=== PATIENT | male | born 1995 | race African-American/Black ===

== ENCOUNTER 2016-04-02 18:32 | Inpatient (IN) | payer BC ==
[~2016-04-02] VITALS: Ht 185.4 cm; Wt 130.2 kg
[2016-04-02] MEDS ORDERED: HALOPERIDOL LACTATE 5 MG/ML AMP IM ONE (18:45)
[2016-04-02] MEDS ORDERED: diphenhydrAMINE HCL 50 MG/ML VIAL IM ONE (18:45)
[2016-04-02] MEDS ORDERED: LORazepam 2 MG/ML VIAL IM ONE (18:45)
--- NOTE | 2016-04-02 18:45 | PD ---
Data Data Orders Diphenhydramine Inj (Benadryl Inj) (04/02/16 18:45) Haloperidol Inj (Haldol Inj) (04/02/16 18:45) Lorazepam Inj (Ativan Inj) (04/02/16 18:45) [facility] Supervised Visit with COLTON: Yes Narrative Course I, Dr. Mayorga, have reviewed the advance practice practioner's documentation and am in agreement, met with the patient face to face, made the diagnosis, and the medical decision making was done by me. *My assessment and Findings: 20-year-old male brought here as a Paulson Paulson act for explosive and violent behavior. Patient is agitated, aggressive with staff and explosive with violent language. He is not able to participate with history or physical examination. Patient has never been here to [facility] before, unknown whether he has underlying psychiatric history or not. Neurologic examination is grossly nonfocal and patient is able to ambulate without any difficulty. Due to his aggressive behavior the remainder his physical exam is limited at this time. Differential includes psychosis, schizophrenia, drug-induced psychosis, oppositional defiant disorder, other. Patient was expedited to our locked psychiatric pod where he was both physically and chemically restrained. Given Benadryl, Haldol, Ativan. Laboratory workup will be obtained. Patient will be cleared for psychiatry. Flora Mayorga MD Apr 02, 2016 18:45
--- NOTE | 2016-04-02 19:00 | PD ---
HPI Chief Complaint: Psychiatric Symptoms Time Seen by Provider: 18:58 Travel History International Travel<30 days: No Contact w/Intl Traveler<30days: No History of Present Illness HPI Patient is a 20-year-old male brought into the emergency Department under Paulson act. Patient denies any physical complaints at this time. He does admit to visual and auditory hallucinations. Patient reports that he is schizophrenic. PFSH Past Medical History Schizophrenia: Yes Social History Alcohol Use: No Tobacco Use: No Substance Use: No Allergies-Medications (Allergen,Severity, Reaction): Coded Allergies: UNOBTAINABLE (Unverified , 04/02/16) Reported Meds & Prescriptions Reported Meds & Active Scripts Active Reported Buspirone (Buspirone HCl) 10 Mg Tab 10 Mg PO TID Zyprexa (Olanzapine) 15 Mg Tab 15 Mg PO HS Wellbutrin Xl 24 HR (Bupropion HCl) 150 Mg Tab 150 Mg PO DAILY Review of Systems ROS Limitations: Psychotic Except as stated in HPI: all other systems reviewed are Neg Psychiatric: Positive: Disorder of Thought, Mood Disorder Physical Exam Narrative GENERAL: These, well-developed, well-nourished, alert male. Resting comfortably in no acute distress. SKIN: Warm and dry. No rash or obvious lesions noted HEAD: Atraumatic. Normocephalic. EYES: Pupils equal and round. No scleral icterus. No injection or drainage. ENT: No nasal bleeding or discharge. Mucous membranes pink and moist. NECK: Trachea midline. No JVD. CARDIOVASCULAR: Regular rate and rhythm. No murmur appreciated. RESPIRATORY: No accessory muscle use. Clear to auscultation. Breath sounds equal bilaterally. GASTROINTESTINAL: Abdomen soft, non-tender, nondistended. Hepatic and splenic margins not palpable. MUSCULOSKELETAL: No obvious deformities. No clubbing. No cyanosis. No edema. NEUROLOGICAL: Awake and alert. No obvious cranial nerve deficits. Motor grossly within normal limits. Normal speech. Data Data Last Documented VS Vital Signs Date Time Temp Pulse Resp B/P Pulse Ox O2 Delivery O2 Flow Rate FiO2 04/02/16 19:24 98.6 108 19 129/61 97 Room Air Orders Diphenhydramine Inj (Benadryl Inj) (04/02/16 18:45) Haloperidol Inj (Haldol Inj) (04/02/16 18:45) Lorazepam Inj (Ativan Inj) (04/02/16 18:45) Complete Blood Count With Diff (04/02/16 18:43) Comprehensive Metabolic Panel (04/02/16 18:43) Drug Screen, Random Urine (04/02/16 18:43) Psych Screen (04/02/16 18:43) Restraints Violent (04/02/16 18:43) Labs Laboratory Tests Test 04/02/16 04/02/16 18:53 19:20 White Blood Count 6.6 TH/MM3 Red Blood Count 5.01 MIL/MM3 Hemoglobin 13.7 GM/DL Hematocrit 41.0 % Mean Corpuscular Volume 81.9 FL Mean Corpuscular Hemoglobin 27.4 PG Mean Corpuscular Hemoglobin 33.5 % Concent Red Cell Distribution Width 14.6 % Platelet Count 244 TH/MM3 Mean Platelet Volume 9.8 FL Neutrophils (%) (Auto) 73.1 % Lymphocytes (%) (Auto) 17.5 % Monocytes (%) (Auto) 7.7 % Eosinophils (%) (Auto) 0.9 % Basophils (%) (Auto) 0.8 % Neutrophils # (Auto) 4.8 TH/MM3 Lymphocytes # (Auto) 1.1 TH/MM3 Monocytes # (Auto) 0.5 TH/MM3 Eosinophils # (Auto) 0.1 TH/MM3 Basophils # (Auto) 0.0 TH/MM3 CBC Comment DIFF FINAL Differential Comment Sodium Level 137 MEQ/L Potassium Level 3.9 MEQ/L Chloride Level 102 MEQ/L Carbon Dioxide Level 27.5 MEQ/L Anion Gap 8 MEQ/L Blood Urea Nitrogen 12 MG/DL Creatinine 0.96 MG/DL Estimat Glomerular Filtration 99 ML/MIN Rate Random Glucose 115 MG/DL Calcium Level 8.6 MG/DL Total Bilirubin 0.3 MG/DL Aspartate Amino Transf 9 U/L (AST/SGOT) Alanine Aminotransferase 19 U/L (ALT/SGPT) Alkaline Phosphatase 108 U/L Total Protein 8.1 GM/DL Albumin 4.3 GM/DL Urine Opiates Screen NEG Urine Barbiturates Screen NEG Urine Amphetamines Screen NEG Urine Benzodiazepines Screen NEG Urine Cocaine Screen NEG Urine Cannabinoids Screen NEG MDM Medical Decision Making Medical Screen Exam Complete: Yes Emergency Medical Condition: Yes Interpretation(s) Vital Signs Date Time Temp Pulse Resp B/P Pulse Ox O2 Delivery O2 Flow Rate FiO2 04/02/16 19:24 98.6 108 19 129/61 97 Room Air Laboratory Tests Test 04/02/16 04/02/16 18:53 19:20 White Blood Count 6.6 TH/MM3 Red Blood Count 5.01 MIL/MM3 Hemoglobin 13.7 GM/DL Hematocrit 41.0 % Mean Corpuscular Volume 81.9 FL Mean Corpuscular Hemoglobin 27.4 PG Mean Corpuscular Hemoglobin 33.5 % Concent Red Cell Distribution Width 14.6 % Platelet Count 244 TH/MM3 Mean Platelet Volume 9.8 FL Neutrophils (%) (Auto) 73.1 % Lymphocytes (%) (Auto) 17.5 % Monocytes (%) (Auto) 7.7 % Eosinophils (%) (Auto) 0.9 % Basophils (%) (Auto) 0.8 % Neutrophils # (Auto) 4.8 TH/MM3 Lymphocytes # (Auto) 1.1 TH/MM3 Monocytes # (Auto) 0.5 TH/MM3 Eosinophils # (Auto) 0.1 TH/MM3 Basophils # (Auto) 0.0 TH/MM3 CBC Comment DIFF FINAL Differential Comment Sodium Level 137 MEQ/L Potassium Level 3.9 MEQ/L Chloride Level 102 MEQ/L Carbon Dioxide Level 27.5 MEQ/L Anion Gap 8 MEQ/L Blood Urea Nitrogen 12 MG/DL Creatinine 0.96 MG/DL Estimat Glomerular Filtration 99 ML/MIN Rate Random Glucose 115 MG/DL Calcium Level 8.6 MG/DL Total Bilirubin 0.3 MG/DL Aspartate Amino Transf 9 U/L (AST/SGOT) Alanine Aminotransferase 19 U/L (ALT/SGPT) Alkaline Phosphatase 108 U/L Total Protein 8.1 GM/DL Albumin 4.3 GM/DL Urine Opiates Screen NEG Urine Barbiturates Screen NEG Urine Amphetamines Screen NEG Urine Benzodiazepines Screen NEG Urine Cocaine Screen NEG Urine Cannabinoids Screen NEG Differential Diagnosis Mood disorder versus substance abuse versus schizophrenia versus psychosis versus delirium versus other Narrative Course Patient is a 20-year-old male who was brought into emergency Department under Paulson act for psychiatric evaluation. Exam was limited due to patient not cooperating with interview. Patient's vital signs are stable, he was mildly tachycardic with a rate of 108 on arrival however he was also agitated at that time. Patient denies any physical complaints at this time, he admits to hearing auditory hallucinations and seeing visual hallucinations. He reports a history of schizophrenia. CBC, chemistry, tox screen is negative. Patient is medically clear for psychiatric evaluation at this time. Diagnosis Primary Impression: Medical clearance for psychiatric admission Condition: Stable Carrie South Apr 02, 2016 19:00
[2016-04-02 19:24] VITALS: BP 129/61; PULSE 108; RESP 19; TEMP 98.6; O2SAT 97
[2016-04-02 19:38] LABS: AUTOMATED NEUTROPHIL # 4.8 TH/MM3 (1.8-7.7); BASOPHIL % 0.8 % (0.0-2.0); EOSINOPHIL # 0.1 TH/MM3 (0-0.4); EOSINOPHIL % 0.9 % (0.0-4.0); HEMO FLAGS DIFF FINAL; LYMPH % 17.5 % (9.0-44.0); LYMPHOCYTE # 1.1 TH/MM3 (1.0-4.8); MEAN CELL VOLUME 81.9 FL (80.0-100.0); MEAN CORPUSCULAR HEMOGLOBIN 27.4 PG (27.0-34.0); MEAN CORPUSCULAR HGB CONC 33.5 % (32.0-36.0); MONO % 7.7 % (0.0-8.0); NEUT % 73.1 % (16.0-70.0); PLATELET COUNT 244 TH/MM3 (150-450); RED BLOOD COUNT 5.01 MIL/MM3 (4.50-5.90); RED CELL DISTRIBUTION WIDTH 14.6 % (11.6-17.2); WHITE BLOOD COUNT 6.6 TH/MM3 (4.0-11.0)
[2016-04-02 19:44] LABS: AMPHETAMINE, URINE NEG (NEG); BARBITURATES, URINE NEG (NEG); COCAINE, URINE NEG (NEG)
[2016-04-02] MEDS ORDERED: BUSP10TA PO ×2 (19:49)
[2016-04-02] MEDS ORDERED: BUPR150XL PO ×2 (19:49)
[2016-04-02] MEDS ORDERED: ZYPR15TA PO ×2 (19:49)
[2016-04-02 20:12] LABS: ANION GAP 8 MEQ/L (5-15); AST (GOT) 9 U/L (15-37); BICARBONATE 27.5 MEQ/L (21.0-32.0); BLOOD UREA NITROGEN 12 MG/DL (7-18); CHLORIDE 102 MEQ/L (98-107); GLOMERULAR FILTRATION RATE 99 ML/MIN (>89); POTASSIUM 3.9 MEQ/L (3.5-5.1); SODIUM (NA) 137 MEQ/L (136-145)
[2016-04-02 20:15] LABS: ALKALINE PHOSPHATASE 108 U/L (45-117); ALT (GPT) 19 U/L (12-78); TOTAL BILIRUBIN ADULT 0.3 MG/DL (0.2-1.0)
[2016-04-02] MEDS ORDERED: MAGNESIUM HYDROXIDE SUSP 30 ML CUP PO PRN (21:15)
[2016-04-02] MEDS ORDERED: ALUMINUM/MAGNESIUM/SIMETH 30 ML CUP PO PRN (21:15)
[2016-04-02] MEDS ORDERED: ACETAMINOPHEN 325 MG TAB PO PRN (21:15)
[2016-04-02 22:10] VITALS: BP 138/84; PULSE 113; RESP 18; TEMP 97.4; O2SAT 98
[2016-04-03 06:00] VITALS: BP 100/66; PULSE 100; RESP 18; TEMP 97.7; O2SAT 99
[2016-04-03] MEDS ORDERED: ACETAMINOPHEN 325 MG TAB PO PRN (07:30)
[2016-04-03] MEDS ORDERED: LORazepam 2 MG/ML VIAL IM PRN (07:30)
[2016-04-03] MEDS ORDERED: LORazepam 1 MG TAB PO PRN (07:30)
[2016-04-03] MEDS ORDERED: diphenhydrAMINE HCL 50 MG CAP PO PRN (07:30)
--- NOTE | 2016-04-03 07:55 | HHI.HP ---
Provisional Diagnosis Admission Date Apr 02, 2016 at 21:09 [place] I. 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 Express and informed consent means consent voluntarily given in writing, by a competent person, after sufficient explanation and disclosure of the subject matter involved to enable the person to make a knowing and willful decision without any element of force, fraud, deceit, duress, or other form of constraint or coercion. This person is 18 years of age or older, is not now known to be incompetent to consent to treatment with a guardian advocate, and does not have a health care surrogate or proxy currently making medical treatment decisions. I have found this person to be one of the following: [] Competent to provide express and informed consent, as defined above, for voluntary admission to this facility and is competent to provide express and informed consent for treatment. He/she has the consistent capacity to make well reasoned, willful, and knowing decisions concerning his or her medical or mental health treatment. The person fully and consistently understands the purpose of the admission for examination/placement and is fully capable of personally exercising all rights assured [place] Incompetent to provide express and informed consent to voluntary admission, and this is incompetent to provide express and informed consent to treatment. The person must be transferred to involuntary status and a petition for a guardian advocate filed with the Circuit Court. [] Refusing to provide express and informed consent to voluntary admission but is competent to provide express and informed consent for treatment. The person must be discharged or transferred to involuntary status. Form shall be completed within 24 hours of a person's arrival at the receiving facility and filed in the clinical record of each person: 1. Admitted on a voluntary basis 2. Permitted to provide express and informed consent to his/her own treatment 3. Allowed to transfer from involuntary to voluntary status 4. Prior to permitting a person to consent to his or her own treatment after having been previously found incompetent to consent to treatment. History of Present Illness Capacity: Lacks Capacity HPI Patient is a 20-year-old Afro-Bulgarian male comes in under Paulson act by the [facility]'s office dated 04/02/16 0530 p.m. stating Wagner was screaming at neighbors and threatened to kill his neighbor across the street and his neighbor next door. Wagner was aggressive towards [place] upon arrival deposition [place] felt that without care or treatment Wagner is likely to suffer from eclectic refused to care for himself and such neglected or refusal pulses are revealed and present throughout a substantial harm to his well- being. There is substantial likelihood that without care treatment Wagner will cause serious bodily harm to himself or others in the near future as evidenced by recent behavior. Patient seen screened in ED urine toxicology negative. Patient was aggressive and paranoid in the emergency department necessitating he be given Haldol and Ativan and Benadryl IM. Patient seen on 2700 unit with floor staff. Patient is a markedly malodorous Afro-Bulgarian male calm muscular disheveled in appearance, quite vigilant and angry though he is oriented to place time and situation. He denies having mental illness denies need for medication is vague about any prior psychiatric history though he alludes to would indirectly. He states he lives with his father but is getting set to move about on his own. Patient denies suicidality homicidality, denies any prior sexual or physical abuse, says he did finish high school. He vaguely acknowledges prior psychiatric contact At the present time patient does meet criteria for involuntary psychiatric hospitalization on the Paulson act I'll do first opinion requests a second opinion also feel patient does not have capacity at this time take appropriate decisions concerning his care thus I will request a health care surrogate and guardian advocate. Medication reconciliation shows he may have been taking Wellbutrin BuSpar and Zyprexa in the past will offer that initially and assess compliance and behavior Review of Systems ROS Limitations: Clinical Condition, Psychotic Constitutional: DENIES: Diaphoretic episodes, Fatigue, Fever, Weight gain, Weight loss, Chills, Dizziness, Change in appetite, Night Sweats Endocrine: DENIES: Heat/cold intolerance, Polydipsia, Polyuria, Polyphagia Eyes: DENIES: Blurred vision, Diplopia, Eye inflammation, Eye pain, Vision loss , Photosensitivity, Double Vision Ears, nose, mouth, throat: DENIES: Tinnitus, Hearing loss, Vertigo, Nasal discharge, Oral lesions, Throat pain, Hoarseness, Ear Pain, Running Nose, Epistaxis, Sinus Pain, Toothache, Odynophagia Respiratory: DENIES: Apneas, Cough, Snoring, Wheezing, Hemoptysis, Sputum production, Shortness of breath Cardiovascular: DENIES: Chest pain, Palpitations, Syncope, Dyspnea on Exertion , PND, Lower Extremity Edema, Orthopnea, Claudication Gastrointestinal: DENIES: Abdominal pain, Black stools, Bloody stools, Constipation, Diarrhea, Nausea, Vomiting, Difficulty Swallowing, Anorexia Genitourinary: DENIES: Sexual dysfunction, Urinary frequency, Urinary incontinence, Urgency, Hematuria, Dysuria, Nocturia, Penile Discharge, Testicular Pain, Testicular Swelling Musculoskeletal: DENIES: Joint pain, Muscle aches, Stiffness, Joint Swelling, Back pain, Neck pain Integumentary: DENIES: Abnormal pigmentation, Nail changes, Pruritus, Rash Hematologic/lymphatic: DENIES: Bruising, Lymphadenopathy Immunologic/allergic: DENIES: Eczema, Urticaria Neurologic: COMPLAINS OF: Seizures (self-reported by history), DENIES: Abnormal gait, Headache, Localized weakness, Paresthesias, Speech Problems, Tremor, Poor Balance Psychiatric: COMPLAINS OF: Confusion, Agitation, Delusions Past Psych History Psychological trauma history Denies physical or sexual abuse Violence risk - others (6 mos) Patient psychotic very threatening towards neighbors Violence risk - self (6 mos) Denies Substance Abuse History Drugs/Alcohol past 12 months Denies Past Family Social History Coded Allergies: UNOBTAINABLE (Unverified , 04/02/16) Past Medical History Patient medically cleared ED vague self-reported history of seizure disorder Reported Medications Buspirone 10 Mg Tab10 Mg PO TID Ref 0 04/02/16 Olanzapine (Zyprexa)15 Mg Tab15 Mg PO HS #30 TAB Ref 0 04/02/16 Bupropion HCl ER 24 HR (Wellbutrin Xl 24 HR)150 Mg Sgr470 Mg PO DAILY Ref 0 04/02/16 Current Medications Medications (Trade) Dose Ordered Sig/Olivier Route Start Time Stop Time Status Last Admin (Tylenol) 650 mg Q4H PRN PO 04/02/16 21:15 (Milk Of Magnesia Liq) 30 ml DAILY PRN PO 04/02/16 21:15 (Mag-Al Plus Susp Liq) 30 ml Q6H PRN PO 04/02/16 21:15 Family History Patient states lives with his father is single never been no children Social History Unknown at this time Patient's Strengths (min. 2) Patient verbal overall fairly physically healthy Physical Exam Patient seen screened in ED exam reviewed and agreed with vital signs blood pressure 100/66 pulse 100 respirations 18 Vital Signs Vital Signs Date Time Temp Pulse Resp B/P Pulse Ox O2 Delivery O2 Flow Rate FiO2 04/03/16 06:00 97.7 100 18 100/66 99 04/02/16 19:24 Room Air Mental Status Examination Alert frail will oriented markedly malodorous disheveled stockily built Afro- [place]ian male, guarded vigilant with poor eye contact Appearance Scruffy and malodorous and disheveled Speech: Rapid, Hesitant, Circumstantial, Tangential Orientation: x3 Memory: Unremarkable Thought Process: Linear, Loose Association Thought Content: Paranoid Hallucination Type: None (denies that appears to be responding to internal stimuli) Attention and Concentration: Other (fair) Suicidal Ideation: No Previous Suicide Attempts: No Homicidal Ideation: Yes (made threatening statements towards neighbors) Previous Homicide Attempts: No (unknown at this time) Insight: Poor Judgement: Poor Affect: Other (slight decrease range and intensity) Mood: Irritable, Other (restricted at this time) Motor Activity: Normal gait Assessment & Plan Problem List: (1) Personal history of seizure disorder ICD Code: Z86.69 (2) Paranoid type schizophrenia, chronic state ICD Code: F20.0 Assessment & Plan Estimated LOS: 5-7 days patient psychotic and delusional, history noncompliance medication. And aggressive behavior. At this time patient meets criteria for involuntary psychiatric hospitalization under the Paulson act. I will do first opinion requests second opinion. I also feel he does not have capacity thus I' ll ask for healthcare surrogate and guardian advocate. Patient states she has a history of seizure disorder will hospitalist consult for that. We will initially start with continuing medications per med reconciliation Discharge Planning To be determined Request HC Surrog/Guard Advoc?: Yes Jose Tyler MD Apr 03, 2016 07:55
[2016-04-03] MEDS ORDERED: ALUMINUM/MAGNESIUM/SIMETH 30 ML CUP PO PRN (08:00)
[2016-04-03] MEDS ORDERED: MAGNESIUM HYDROXIDE SUSP 30 ML CUP PO PRN (09:00)
[2016-04-03] MEDS: buPROPion HCL 150 MG EXTENDED RELEASE TAB PO SCH ×2 (09:00→11:59)
[2016-04-03] MEDS: busPIRone HCL 10 MG TAB PO SCH ×4 (09:00→17:44)
[2016-04-03 09:25] LABS: ANION GAP 8 MEQ/L (5-15); BLOOD UREA NITROGEN 11 MG/DL (7-18); CHLORIDE 102 MEQ/L (98-107); GLOMERULAR FILTRATION RATE 129 ML/MIN (>89); HDL CHOLESTEROL 45.5 MG/DL (40.0-60.0); LDL CHOLESTEROL 76 MG/DL (0-99); POTASSIUM 4.1 MEQ/L (3.5-5.1); SODIUM (NA) 139 MEQ/L (136-145)
[2016-04-03] MEDS ORDERED: LORazepam 2 MG/ML VIAL ONE (12:17)
[2016-04-03] MEDS ORDERED: diphenhydrAMINE HCL 50 MG/ML VIAL ONE (12:17)
[2016-04-03] MEDS ORDERED: HALOPERIDOL LACTATE 5 MG/ML AMP ONE ×2 (12:18)
[2016-04-03 12:44] LABS: HEMOGLOBIN A1a 0.8 %; HEMOGLOBIN A1b 1.6 %; HEMOGLOBIN Ao 85.9 %; HEMOGLOBIN LA1C 1.9 %; HEMOGLOBIN P3 3.5 %
--- NOTE | 2016-04-03 13:40 | HHI.PYPN ---
Subjective Remarks This note is for documenting face to face for seclusion order. Pt became agitated and aggressive and threatening to staff, stating that he will kill staff. Pt was given IM medications for agitation and placed in seclusion room. He was seen face to face within 1 hour of order as required (125pm). Pt denies pain or discomfort. He is lying on bed. He is still easily agitated and is upset that MD is "a girl". I explained to pt reason for order and rationale for use of IM medication as well as criteria for removal of seclusion order. Objective Alert: Yes [place]: Person, Place, Situation Mood: Agitated, Angry Affect: Labile Memory Intact: Comment (not formally tested, but no obvious gross deficits) Hallucinations: Other (does not appear to be responding to internal stimuli) Delusions: Yes Delusion Type: Paranoid Suicidal: Ideation (non expressed) Homicidal: Ideation (expressed threats towards staff) Insight/Judgement poor Labs Test 04/02/16 04/02/16 04/03/16 18:53 19:20 08:25 White Blood Count 6.6 TH/MM3 Red Blood Count 5.01 MIL/MM3 Hemoglobin 13.7 GM/DL Hematocrit 41.0 % Mean Corpuscular Volume 81.9 FL Mean Corpuscular Hemoglobin 27.4 PG Mean Corpuscular Hemoglobin 33.5 % Concent Red Cell Distribution Width 14.6 % Platelet Count 244 TH/MM3 Mean Platelet Volume 9.8 FL Neutrophils (%) (Auto) 73.1 % Lymphocytes (%) (Auto) 17.5 % Monocytes (%) (Auto) 7.7 % Eosinophils (%) (Auto) 0.9 % Basophils (%) (Auto) 0.8 % Neutrophils # (Auto) 4.8 TH/MM3 Lymphocytes # (Auto) 1.1 TH/MM3 Monocytes # (Auto) 0.5 TH/MM3 Eosinophils # (Auto) 0.1 TH/MM3 Basophils # (Auto) 0.0 TH/MM3 CBC Comment DIFF FINAL Differential Comment Sodium Level 137 MEQ/L 139 MEQ/L Potassium Level 3.9 MEQ/L 4.1 MEQ/L Chloride Level 102 MEQ/L 102 MEQ/L Carbon Dioxide Level 27.5 MEQ/L 29.0 MEQ/L Anion Gap 8 MEQ/L 8 MEQ/L Blood Urea Nitrogen 12 MG/DL 11 MG/DL Creatinine 0.96 MG/DL 0.90 MG/DL Estimat Glomerular Filtration 99 ML/MIN 129 ML/MIN Rate Random Glucose 115 MG/DL 152 MG/DL Calcium Level 8.6 MG/DL 8.7 MG/DL Total Bilirubin 0.3 MG/DL Aspartate Amino Transf 9 U/L (AST/SGOT) Alanine Aminotransferase 19 U/L (ALT/SGPT) Alkaline Phosphatase 108 U/L Total Protein 8.1 GM/DL Albumin 4.3 GM/DL Urine Opiates Screen NEG Urine Barbiturates Screen NEG Urine Amphetamines Screen NEG Urine Benzodiazepines Screen NEG Urine Cocaine Screen NEG Urine Cannabinoids Screen NEG Hemoglobin A1c 5.6 % Triglycerides Level 44 MG/DL Cholesterol Level 130 MG/DL LDL Cholesterol 76 MG/DL HDL Cholesterol 45.5 MG/DL Cholesterol/HDL Ratio 2.85 RATIO Vitals/IOs Vital Signs Date Time Temp Pulse Resp B/P Pulse Ox O2 Delivery O2 Flow Rate FiO2 04/03/16 06:00 97.7 100 18 100/66 99 04/02/16 19:24 Room Air Assessment & Plan Problem List: (1) Personal history of seizure disorder ICD Code: Z86.69 (2) Paranoid type schizophrenia, chronic state ICD Code: F20.0 Assessment & Plan Pt to be removed from seclusion once calm and no longer presenting danger to milieu. Estimated LOS: days Justification for Cont. Inpt. aggression Request HC Surrog/Guard Advoc?: Yes Kitty Barrientos MD Apr 03, 2016 13:39
[2016-04-04 05:51] VITALS: BP 114/69; PULSE 109; RESP 18; TEMP 98.2; O2SAT 100
[2016-04-04] MEDS: busPIRone HCL 10 MG TAB PO SCH ×3 (09:04→18:26)
[2016-04-04] MEDS: buPROPion HCL 150 MG EXTENDED RELEASE TAB PO SCH (09:04)
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
[2016-04-04] MEDS ORDERED: BENZTROPINE MESYLATE 1 MG TAB PO PRN (12:15)
[2016-04-04] MEDS ORDERED: BENZTROPINE MESYLATE 2 MG/2 ML VIAL IM PRN (12:15)
[2016-04-04] MEDS ORDERED: HALOPERIDOL LACTATE 5 MG/ML AMP IM PRN (12:15)
[2016-04-04 15:29] LABS: AMPHETAMINE, URINE NEG (NEG); BARBITURATES, URINE NEG (NEG); COCAINE, URINE NEG (NEG)
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
[2016-04-04 20:32] VITALS: BP 117/76; PULSE 106; RESP 18; TEMP 98.3; O2SAT 99
[2016-04-04] MEDS: HALOPERIDOL 5 MG TAB PO SCH (20:34)
[2016-04-05 06:32] VITALS: BP 113/72; PULSE 85; RESP 18; TEMP 97.4; O2SAT 100
[2016-04-05] MEDS: buPROPion HCL 150 MG EXTENDED RELEASE TAB PO SCH (08:00)
[2016-04-05] MEDS: busPIRone HCL 10 MG TAB PO SCH (08:00)
[2016-04-05] MEDS: HALOPERIDOL 5 MG TAB PO SCH (08:00)
[2016-04-05 11:45] VITALS: BP 142/89; PULSE 100; RESP 20; TEMP 98
[2016-04-05] MEDS ORDERED: HALOPERIDOL LACTATE 5 MG/ML AMP IM PRN (11:45)
--- NOTE | 2016-04-05 11:45 | HHI.PYPN ---
Subjective Remarks Patient seen and examined with counselor, occupational therapist and nursing staff in treatment team. Chart reviewed. Case discussed with treatment team. On my examination today, patient seems a little more at ease and is less discharge focused. He denies any SI, HI or AVH but remains internally stimulated. He is somewhat defensive and paranoid still. He denies side effects from medications. He says that his goal for being in the hospital is to "I want to do the 30 day shot" referring to Haldol Decanoate. I discussed the mechanics of the Haldol Decanoate injection along with the need for temporary oral supplementation with him. Review of Systems ROS Limitations: Poor Historian Other No physical complaints today. Objective Alert: Yes [place]: Person, Place Mood: Other (calmer) Affect: Blunted Memory Intact: Comment (not formally assessed) Hallucinations: Other (remains somewhat internally stimulated) Delusions: Yes Delusion Type: Paranoid Suicidal: Ideation (none) Homicidal: Ideation (none) Insight/Judgement Fair to poor Remarks No motoric abnormalities noted. No hand tremor, no cogwheeling, no dystonia, no dyskinesia. Thought process remains a little perseverative. Speech within normal limits for rate, tone and volume. Labs Test 04/04/16 14:30 Urine Opiates Screen NEG Urine Barbiturates Screen NEG Urine Amphetamines Screen NEG Urine Benzodiazepines Screen NEG Urine Cocaine Screen NEG Urine Cannabinoids Screen NEG Labs reviewed. Vitals/IOs Vital Signs Date Time Temp Pulse Resp B/P Pulse Ox O2 Delivery O2 Flow Rate FiO2 04/05/16 06:32 97.4 85 18 113/72 100 04/02/16 19:24 Room Air Intake and Output 04/04/16 04/04/16 04/05/16 08:00 16:00 00:00 Intake Total 480 ml Balance 480 ml Assessment & Plan Problem List: (1) Schizophrenia ICD Code: F20.9 Assessment & Plan Titrate Haldol to 10 mg twice daily. So long as well tolerated and efficacious , we will plan to transition to Haldol Decanoate. I will plan to administer the initial 100 mg dose as early as tomorrow with the remainder of the dose to be administered after the appropriate interval. Continue other medications and care as ordered. Hospitalist consult noted and appreciated. Justification for Cont. Inpt. Medication changes. Risk for decompensation. Discharge Planning Pending psychiatric stabilization Request Surrog/Guard Advoc?: Yes Problem Qualifiers (1) Schizophrenia: Qualified Code: F20.0 - Paranoid schizophrenia Rl Bauman MD Apr 05, 2016 11:45
--- NOTE | 2016-04-05 13:03 | RADRPT ---
EXAM DATE/TIME: 04/05/2016 12:51 [facility] COMPARISON: No previous studies available for comparison. INDICATIONS : Altered mental status; possilbe syncopal episodes. RADIATION DOSE: 56.35 CTDIvol (mGy) MEDICAL HISTORY : Seizures. SURGICAL HISTORY : None. ENCOUNTER: Initial ACUITY: 1 day PAIN SCALE: 0/10 LOCATION: cranial TECHNIQUE: Multiple contiguous axial images were obtained of the head. Using automated exposure control and adj ustment of the mA and/or kV according to patient size, radiation dose was kept as low as reasonably a chievable to obtain optimal diagnostic quality images. FINDINGS: CEREBRUM: The ventricles are normal for age. No evidence of midline shift, mass lesion, hemorrhage or acute in farction. No extra-axial fluid collections are seen. POSTERIOR FOSSA: The cerebellum and brainstem are intact. The 4th ventricle is midline. The cerebellopontine angle i s unremarkable. EXTRACRANIAL: The visualized portion of the orbits is intact. There is a mucous retention cyst within the right max illary sinus. SKULL: The calvaria is intact. No evidence of skull fracture. CONCLUSION: 1. No acute intracranial abnormality. 2. Mucous retention cyst within the right maxillary sinus. John Davis MD on April 05, 2016 at 12:59 Board Certified Radiologist. This report was verified electronically.
[2016-04-05] MEDS ORDERED: diphenhydrAMINE HCL 50 MG/ML VIAL IM ONE (13:45)
[2016-04-05] MEDS ORDERED: HALOPERIDOL LACTATE 5 MG/ML AMP IM ONE (13:45)
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
[2016-04-05 16:41] VITALS: BP_SYST 131; BP_SYST 135; BP_DIAS 65; BP_DIAS 66; BP_DIAS 76; PULSE 97; RESP 18; TEMP 98.7; O2SAT 94
[2016-04-05] MEDS ORDERED: SODIUM CHLOR 0.9% 1000 ML INJ 1,000 ML IV SCH (17:00)
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
[2016-04-05 18:00] VITALS: BP 142/62; PULSE 100; RESP 18; TEMP 98.3; O2SAT 96
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
[2016-04-05 18:45] VITALS: BP 142/62; PULSE 100; RESP 18; TEMP 98.3; O2SAT 96
[2016-04-05 20:02] LABS: CREATINE KINASE 578 U/L (39-308)
[2016-04-05 20:14] LABS: CKMB 0.9 NG/ML (0.5-3.6)
[2016-04-05] MEDS ORDERED: HALOPERIDOL 5 MG TAB PO SCH (21:00)
--- NOTE | 2016-04-06 22:49 | EKG ---
Date Performed: 04/05/2016 Time Performed: 12:18:13 PTAGE: 20 years EKG: Sinus rhythm NORMAL ECG NO PREVIOUS TRACING DOCTOR: J Carlos Soriano Interpretating Date/Time 04/06/2016 22:45:11
[2016-04-07 13:06] LABS: BATH SALTS (MDPV) UR NEG (NEG); ECSTASY (MDMA) UR NEG (NEG); HEROIN (6-ACETYLMORPHINE) UR NEG (NEG); K2 SPICE UR NEG (NEG); OBMETHADONE UR NEG (NEG); OXYCODONE (PERCODAN) NEG (NEG); PHENCYCLIDINE URINE NEG (NEG)
== END 2016-04-05 21:30 | disposition short-term general hospital (02) | DRG 885 ==
LOC: NEPJ 18:32 → NEDA 21:09 → H270 22:10 → H4EA 04-05 15:23
PROVIDERS: ADMIT Psychiatry & Neurology Psychiatry; ATTEND Psychiatry & Neurology Psychiatry
DX: F20.0 Paranoid schizophrenia (principal); G40.909 Epilepsy, unspecified, not intractable, without status epilepticus; F12.90 Cannabis use, unspecified, uncomplicated; R45.1 Restlessness and agitation; R00.0 Tachycardia, unspecified; Z91.19 Patient's noncompliance with other medical treatment and regimen
CPT/HCPCS: 70450; 80048; 80053; 80061; 80307; 82550; 82552; 83036; 84484; 85025; 93005; 95819; 96372; G0481; J1200; J1630; J2060; J7030

== ENCOUNTER 2016-04-05 21:45 | Observation (INO) | payer BC ==
[2016-04-05 21:35] VITALS: BP_SYST 144; BP_SYST 145; BP_SYST 152; BP_DIAS 67; BP_DIAS 71; BP_DIAS 75; PULSE 86; RESP 16; TEMP 97.6; O2SAT 98
[~2016-04-05 21:45] MED LIST: BUPR150XL PO; BUSP10TA PO; ZYPR15TA PO
[2016-04-05] MEDS ORDERED: NALOXONE HCL 0.4 MG/ML AMP IV PRN (23:00)
[2016-04-05] MEDS ORDERED: SODIUM CHLORIDE 0.9% FLUSH 5 ML FLUSH FLUSH PRN (23:00)
[2016-04-05] MEDS: SODIUM CHLOR 0.9% 1000 ML INJ 1,000 ML IV SCH (23:30)
[2016-04-06 01:34] VITALS: BP 132/72; PULSE 112; RESP 16; TEMP 97.5; O2SAT 96
[2016-04-06 01:40] LABS: CREATINE KINASE 614 U/L (39-308)
[2016-04-06 01:52] LABS: CKMB LESS THAN 0.5 NG/ML (0.5-3.6)
[2016-04-06 05:34] VITALS: BP 109/59; PULSE 92; RESP 16; TEMP 97.1; O2SAT 98
[2016-04-06 06:24] LABS: AUTOMATED NEUTROPHIL # 4.3 TH/MM3 (1.8-7.7); BASOPHIL # 0.1 TH/MM3 (0-0.2); BASOPHIL % 0.8 % (0.0-2.0); EOSINOPHIL # 0.2 TH/MM3 (0-0.4); EOSINOPHIL % 2.6 % (0.0-4.0); HEMO FLAGS DIFF FINAL; LYMPH % 29.1 % (9.0-44.0); LYMPHOCYTE # 2.1 TH/MM3 (1.0-4.8); MEAN CELL VOLUME 82.8 FL (80.0-100.0); MEAN CORPUSCULAR HEMOGLOBIN 27.4 PG (27.0-34.0); MEAN CORPUSCULAR HGB CONC 33.1 % (32.0-36.0); MONO % 9.1 % (0.0-8.0); NEUT % 58.4 % (16.0-70.0); PLATELET COUNT 239 TH/MM3 (150-450); RED BLOOD COUNT 5.07 MIL/MM3 (4.50-5.90); RED CELL DISTRIBUTION WIDTH 14.8 % (11.6-17.2); WHITE BLOOD COUNT 7.3 TH/MM3 (4.0-11.0)
[2016-04-06 06:52] LABS: ANION GAP 5 MEQ/L (5-15); BICARBONATE 32.1 MEQ/L (21.0-32.0); BLOOD UREA NITROGEN 9 MG/DL (7-18); CHLORIDE 102 MEQ/L (98-107); GLOMERULAR FILTRATION RATE 116 ML/MIN (>89); POTASSIUM 4.3 MEQ/L (3.5-5.1); SODIUM (NA) 139 MEQ/L (136-145)
[2016-04-06 06:55] LABS: CREATINE KINASE 559 U/L (39-308)
[2016-04-06 07:06] LABS: CKMB LESS THAN 0.5 NG/ML (0.5-3.6)
[2016-04-06] MEDS: SODIUM CHLOR 0.9% 1000 ML INJ 1,000 ML IV SCH ×2 (07:30→14:57)
[2016-04-06] MEDS ORDERED: SODIUM CHLORIDE 0.9% FLUSH 5 ML FLUSH FLUSH SCH (09:00)
[2016-04-06 09:34] VITALS: BP 113/60; PULSE 115; RESP 18; TEMP 97.5; O2SAT 94
--- NOTE | 2016-04-06 11:09 | RADRPT ---
EXAM DATE/TIME: 04/06/2016 09:13 [place] COMPARISON: No previous studies available for comparison. INDICATIONS : Syncope. MEDICAL HISTORY : Seizures. Schizophrenia. SURGICAL HISTORY : Oral surgery. Right shoulder surgery. ENCOUNTER: Initial ACUITY: 1 day PAIN SCORE: 0/10 LOCATION: Bilateral neck. PEAK SYSTOLIC VELOCITIES (cm/sec): ICA/CCA RATIO: Right: 0.9 Left: 0.7 ICA: Right: 116 Left: 100 CCA: Right: 124 Left: 146 ECA: Right: 102 Left: 90 VERTEBRAL: Right: 45 antegrade Left: 47 antegrade Elevated flow velocities and ICA/CCA ratios have been found to correlate with increased degrees of vessel stenosis, calculated as percentage of diameter relative to a normal segment of distal ICA/CCA FINDINGS: RIGHT CAROTID: No significant stenosis is visualized. The waveforms are within normal limits. LEFT CAROTID: No significant stenosis is visualized. The waveforms are within normal limits. VERTEBRAL ARTERIES: Antegrade flow is seen in both vertebral arteries. MISCELLANEOUS: None. CONCLUSION: Normal examination for a patient of this age. Lamar Amezcua MD on April 06, 2016 at 11:06 Board Certified Radiologist. This report was verified electronically.
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
--- NOTE | 2016-04-06 13:06 | EC ---
Study Study Date:04/06/2016 STUDY CONCLUSIONS SUMMARY LEFT VENTRICLE: The cavity size was normal. Systolic function was normal. The estimated ejection fraction was in the range of 55% to 60%. Wall motion was normal; there were no regional wall motion abnormalities. If LV function is below 40, please consider prescribing an ACEI or ARB or document rationale for non-use. PROCEDURE DATA STUDY STATUS: Elective. Procedure: Transthoracic echocardiography. Image quality was good. Scanning was performed from the parasternal, apical, and subcostal acoustic windows. Study completion: The patient tolerated the procedure well. Transthoracic echocardiography. M-mode, complete 2D, complete spectral Doppler, and color Doppler. Patient status: Inpatient. CARDIAC ANATOMY LEFT VENTRICLE: The cavity size was normal. There was no hypertrophy. Systolic function was normal. The estimated ejection fraction was in the range of 55% to 60%. Wall motion was normal; there were no regional wall motion abnormalities. AORTIC VALVE: Probably trileaflet. Doppler: There was no stenosis. No significant regurgitation. MITRAL VALVE: Structurally normal valve. Doppler: There was no evidence for stenosis. Trace regurgitation. Peak gradient: 2mm Hg (D). LEFT ATRIUM: The atrium was at the upper limits of normal in size. RIGHT VENTRICLE: The cavity size was normal. Systolic function was normal. PULMONIC VALVE: Not well visualized. Doppler: There was no evidence for stenosis. No significant regurgitation. TRICUSPID VALVE: The valve appears to be grossly normal. Doppler: There was no evidence for stenosis. Trace to mild regurgitation. RIGHT ATRIUM: The atrium was normal in size. PERICARDIUM: There was no pericardial effusion. BASIC MEASUREMENTS ADULT Normal Left ventricle LV internal dimension, ED, chordal level, 50.4 mm 43-52 PLAX LV posterior wall thickness, ED 7.97 mm IVS/LVPW ratio, ED *1.38 <1.3 Ventricular septum Septal thickness, ED 11 mm Aortic valve Leaflet separation 24 mm 15-26 Left atrium Anterior-posterior dimension 42 mm Right ventricle RV internal dimension, ED, PLAX 21.9 mm 19-38 BASIC MEASUREMENTS ADULT Normal Aortic valve Leaflet separation 24 mm 15-26 Aorta Root diameter, ED 35 mm 20-37 DOPPLER MEASUREMENTS ADULT Normal Main pulmonary artery Pressure, S *34 mm Hg =30 Mitral valve Peak E-wave velocity 74 cm/s Peak A-wave velocity 62.2 cm/s Peak gradient, D 2 mm Hg Peak E/A ratio 1.2 Tricuspid valve Regurgitant peak velocity 199 cm/s Peak RV-RA gradient, S 16 mm Hg Maximal regurgitant velocity 199 cm/s Systemic veins Estimated CVP 10 mm Hg Right ventricle RV pressure, S *34 mm Hg <30 LEGEND: Mean values are shown as u=mean value. Asterisk (*) johnson values outside specified normal range. Prepared and signed by Rafael Mercado [id number]
[2016-04-06 13:34] VITALS: BP 140/55; PULSE 105; RESP 18; TEMP 96.1; O2SAT 93
--- NOTE | 2016-04-06 13:54 | HHI.DCPOC ---
Discharge Care Plan Diagnosis: (1) Paranoid type schizophrenia, chronic state (2) Schizophrenia (3) Syncope Goals to Promote Your Health * To prevent worsening of your condition and complications * To maintain your health at the optimal level Directions to Meet Your Goals Take your medications as prescribed Follow your dietary instruction Follow activity as directed Keep your appointments as scheduled Take your immunizations and boosters as scheduled If your symptoms worsen call your PCP, if no PCP go to Urgent Care Center or Emergency Room Smoking is Dangerous to Your Health. Avoid second hand smoke Call the 24-hour hour crisis hotline for domestic abuse at Lobo Da Silva MD Apr 06, 2016 13:54
--- NOTE | 2016-04-06 22:24 | EKG ---
Date Performed: 04/06/2016 Time Performed: 12:26:20 PTAGE: 20 years EKG: Sinus rhythm NONSPECIFIC T-WAVE ABNORMALITY BORDERLINE ECG PREVIOUS TRACING : 04/05/2016 12.18 Compared to prior tracing no significant change DOCTOR: J Carlos Soriano Interpretating Date/Time 04/06/2016 22:23:15
== END 2016-04-06 15:08 ==
LOC: N06A 21:45 → INTOOBSV 21:45
PROVIDERS: ADMIT Hospitalist; ATTEND Hospitalist
DX: R55 Syncope and collapse (principal); F20.9 Schizophrenia, unspecified; F40.240 Claustrophobia; R94.31 Abnormal electrocardiogram [ECG] [EKG]
CPT/HCPCS: 80048; 82550; 82552; 84484; 85025; 93005; 93306; 93880; 97162; G0378; G8987; G8988; 76937

== ENCOUNTER 2016-04-06 15:20 | Inpatient (IN) | payer BC ==
[~2016-04-06] VITALS: Ht 190.5 cm; Wt 129.9 kg
[2016-04-06] MEDS ORDERED: LORazepam 1 MG TAB PO PRN (16:00)
[2016-04-06] MEDS ORDERED: ALUMINUM/MAGNESIUM/SIMETH 30 ML CUP PO PRN (16:00)
[2016-04-06] MEDS ORDERED: BENZTROPINE MESYLATE 2 MG/2 ML VIAL IM PRN (16:00)
[2016-04-06] MEDS ORDERED: ACETAMINOPHEN 325 MG TAB PO PRN (16:00)
[2016-04-06] MEDS ORDERED: BENZTROPINE MESYLATE 1 MG TAB PO PRN (16:00)
[2016-04-06] MEDS ORDERED: diphenhydrAMINE HCL 50 MG CAP PO PRN (16:00)
[2016-04-06] MEDS ORDERED: LORazepam 2 MG/ML VIAL IM PRN (16:00)
[2016-04-06] MEDS ORDERED: MAGNESIUM HYDROXIDE SUSP 30 ML CUP PO PRN (16:00)
[2016-04-06] MEDS: HALOPERIDOL 5 MG TAB PO SCH (18:00)
[2016-04-06] MEDS ORDERED: HALOPERIDOL LACTATE 5 MG/ML AMP IM PRN (18:00)
[2016-04-06 18:19] VITALS: BP 170/84; PULSE 95; RESP 17; TEMP 97.9; O2SAT 98
[2016-04-07 05:00] VITALS: BP 111/57; PULSE 95; RESP 18; TEMP 98.1; O2SAT 97
[2016-04-07 08:09] LABS: CREATINE KINASE 432 U/L (39-308)
[2016-04-07 08:24] LABS: CKMB LESS THAN 0.5 NG/ML (0.5-3.6)
[2016-04-07] MEDS ORDERED: NICOTINE 21 MG/24 HR PATCH T-DERMAL SCH (09:00)
[2016-04-07] MEDS ORDERED: REMOVE OLD PATCH T-DERMAL SCH (09:00)
[2016-04-07] MEDS: HALOPERIDOL 5 MG TAB PO SCH ×3 (09:20→17:32)
--- NOTE | 2016-04-07 10:43 | HHI.HP ---
Provisional Diagnosis Admission Date Apr 06, 2016 at 15:20 [place] I. 1. Schizophrenia, paranoid type, acute exacerbation 2. Rule out comorbid anxiety disorder [place] II. Deferred [place] V. GAF is 25 presently Certification of Person's Competence To Provide Express and Informed Consent I have personally examined Tavo Edward , a person being served at [facility] on, Apr 07, 2016 10:43. Express and informed consent means consent voluntarily given in writing, by a competent person, after sufficient explanation and disclosure of the subject matter involved to enable the person to make a knowing and willful decision without any element of force, fraud, deceit, duress, or other form of constraint or coercion. This person is 18 years of age or older, is not now known to be incompetent to consent to treatment with a guardian advocate, and does not have a health care surrogate or proxy currently making medical treatment decisions. I have found this person to be one of the following: [] Competent to provide express and informed consent, as defined above, for voluntary admission to this facility and is competent to provide express and informed consent for treatment. He/she has the consistent capacity to make well reasoned, willful, and knowing decisions concerning his or her medical or mental health treatment. The person fully and consistently understands the purpose of the admission for examination/placement and is fully capable of personally exercising all rights assured [place] [x] Incompetent to provide express and informed consent to voluntary admission, and this is incompetent to provide express and informed consent to treatment. The person must be transferred to involuntary status and a petition for a guardian advocate filed with the Circuit Court. [] Refusing to provide express and informed consent to voluntary admission but is competent to provide express and informed consent for treatment. The person must be discharged or transferred to involuntary status. Form shall be completed within 24 hours of a person's arrival at the receiving facility and filed in the clinical record of each person: 1. Admitted on a voluntary basis 2. Permitted to provide express and informed consent to his/her own treatment 3. Allowed to transfer from involuntary to voluntary status 4. Prior to permitting a person to consent to his or her own treatment after having been previously found incompetent to consent to treatment. History of Present Illness Capacity: Lacks Capacity HPI Mr. Edward is a 20-year-old male with a history of schizophrenia who was initially admitted on April 02 to the inpatient psychiatric unit under a [employer] act. On about the patient's third hospital day the patient experienced several syncopal spells and was evaluated by the hospitalist and transferred initially to the [facility] psych unit and thereafter was discharged to the inpatient medical unit for workup of these spells. Workup including head CT on the EKG, carotid ultrasound and EEG were all negative, and the spells are believed to be related to anxiety. Patient was fairly behaviorally disturbed on the medical unit and following medical clearance has been return to the 2700 inpatient psychiatric unit under my care for further management of his underlying psychiatric illness. Patient seen and examined with counselor at nursing staff. Chart reviewed. Case discussed with nursing staff. On my examination today, the patient remains frankly internally stimulated. He denies any AVH however. Mood is quite anxious. He denies any SI or HI. He is less perseverative on discharge than he was prior to his medical hospitalization. Paranoia is present. Psychiatric ROS is otherwise negative. Patient's case was presented to the [employer] act court today with patient's father in attendance. The patient was retained on an involuntary basis on the inpatient psychiatric unit and his father was appointed as his guardian advocate. Involuntary outpatient commitment following discharge from the inpatient psychiatric unit was also discussed. Past psychiatric, family, chemical dependency and social history are unchanged from my initial history and physical examination from his index psychiatric hospitalization a few days ago. Review of Systems ROS Limitations: Psychotic, Poor Historian Other No reported physical complaints today. No reported syncopal episodes. Past Psych History Psychological trauma history Unchanged Violence risk - others (6 mos) Concerned that this remains elevated. Violence risk - self (6 mos) Concerned that this is elevated due to self-neglect from psychosis. Substance Abuse History Drugs/Alcohol past 12 months See previous assessment Past Family Social History Coded Allergies: No Known Allergies (Unverified , 04/04/16) Per father. Pt presently psychotic. Past Medical History See electronic medical record Discontinued Reported Medications Buspirone 10 Mg Tab10 Mg PO TID Ref 0 04/02/16 Olanzapine (Zyprexa)15 Mg Tab15 Mg PO HS #30 TAB Ref 0 04/02/16 Bupropion HCl ER 24 HR (Wellbutrin Xl 24 HR)150 Mg [id number] Mg PO DAILY Ref 0 04/02/16 Current Medications Medications (Trade) Dose Ordered Sig/Olivier Route Start Time Stop Time Status Last Admin (Ativan) 2 mg Q6H PRN PO 04/06/16 16:00 (Ativan Inj) 2 mg Q6H PRN IM 04/06/16 16:00 (Benadryl) 50 mg HS PRN PO 04/06/16 16:00 (Tylenol) 650 mg Q4H PRN PO 04/06/16 16:00 (Milk Of Magnesia Liq) 30 ml DAILY PRN PO 04/06/16 16:00 (Mag-Al Plus Susp Liq) 30 ml Q6H PRN PO 04/06/16 16:00 (Cogentin) 1 mg Q12H PRN PO 04/06/16 16:00 (Cogentin Inj) 1 mg Q12H PRN IM 04/06/16 16:00 (Haldol) 5 mg TID PO 04/06/16 18:00 04/07/16 09:20 (Haldol Inj) 5 mg TID PRN IM 04/06/16 18:00 Family History See previous assessment Social History See previous assessment Patient's Strengths (min. 2) In a monitored setting. Supportive father. Physical Exam Physical examination was completed by primary medical team on medical floor. On my examination today, the patient appears to be in no acute physical distress. No motoric abnormalities noted. Labs and vital signs reviewed. Vital Signs Vital Signs Date Time Temp Pulse Resp B/P Pulse Ox O2 Delivery O2 Flow Rate FiO2 04/07/16 05:00 98.1 95 18 111/57 97 Lab Results Item Value Date Time White Blood Count 7.3 TH/MM3 04/06/16 0513 Hemoglobin 13.9 GM/DL 04/06/16 0513 Platelet Count 239 TH/MM3 04/06/16 0513 Sodium Level 139 MEQ/L 04/06/16 0513 Potassium Level 4.3 MEQ/L 04/06/16 0513 Chloride Level 102 MEQ/L 04/06/16 0513 Carbon Dioxide Level 32.1 MEQ/L H 04/06/16 0513 Blood Urea Nitrogen 9 MG/DL 04/06/16 0513 Creatinine 0.99 MG/DL 04/06/16 0513 Total Creatine Kinase 614 U/L H 04/06/16 0031 Total Creatine Kinase 432 U/L H 04/07/16 0712 Creatine Kinase MB % 0.1 % 04/07/16 0712 Troponin I LESS THAN 0.02 NG/ML L 04/06/[address] negative for acute intracranial process. Carotid ultrasound negative. EEG read is still in draft but negative for epileptiform discharges. EKG was sinus rhythm with QTC not prolonged. Mental Status Examination Patient is in hospital gown. He is disheveled and malodorous. He is awake and alert and oriented to person and hospital. No evidence of delirium. No motoric abnormalities noted. Speech is within normal limits for rate, tone and volume. Mood is anxious and affect is consistent with stated mood. Thought process fairly linear. No loosening of associations. Paranoia is present. Denies AVH but appears frankly internally stimulated. Denies SI or HI but is unreliable to contract for safety. Insight and judgment are poor. Previous Suicide Attempts: No Previous Homicide Attempts: No Assessment & Plan Problem List: (1) Schizophrenia ICD Code: F20.9 Assessment & Plan This is a 20-year-old male returned from the inpatient medical unit to the inpatient psychiatric unit following negative workup of syncopal spells. Patient remains psychotic and requires ongoing psychiatric hospitalization for safety, observation and stabilization. Plan will be to titrate antipsychotic to therapeutic dose and transition to long-acting injectable. Long-term planning would include placement and outpatient commitment program if determined appropriate by the dehydrogenation operator head. --Admit inpatient --Patient has been retained on an involuntary basis on the inpatient psychiatric unit by the [place] [facility] dehydrogenation operator head. Father was appointed guardian advocate. --I have consulted the hospitalist to continue to follow the patient on the inpatient psychiatric unit --Haldol 5 mg 3 times daily PO/IM with plans to titrate to effect. Plan for Haldol Dec. --I will hold patient's Wellbutrin out of concern that it might have been exacerbating patient's anxiety. We could consider a serotonergic antidepressant. In the meantime I will start the patient on the low dose Klonopin for anxiety. --Ativan as needed for agitation, Benadryl as needed for sleep, Cogentin as needed for EPS. --Vitals every 4 hours. --Fall prec. --Counselor to see. --Disposition planning. --Estimated length of stay: 10-13 days Discharge Planning Possible outpatient commitment. Request HC Surrog/Guard Advoc?: Yes Problem Qualifiers (1) Schizophrenia: Qualified Code: F20.0 - Paranoid schizophrenia Rl Bauman MD Apr 07, 2016 10:43
[2016-04-07] MEDS: clonazePAM 0.5 MG TAB PO SCH ×2 (12:00→21:08)
--- NOTE | 2016-04-07 14:20 | PD.CONS ---
HPI Service [facility] Hospitalists Consult Requested By Psychiatric services Reason for Consult Medical management- continue from medical floor Primary Care Physician Unknown Diagnoses: History of Present Illness This is a 20-year-old male who came into the hospital on the [facility] office secondary to aggressive behavior. The patient is very well known to me as he was being followed us during this hospitalization and in consultation for the psychiatric department. The patient was then admitted to the patient's psychiatric unit for further evaluation and I was consulted for medical management. While the patient was being treated in the psychiatric unit the patient had 2 episodes of what was described by the nurse taking care of him as "passing out". The patient then was transferred to the medical/psychiatric unit for further evaluation. There syncopal workup was undertaken when the patient had a second syncopal episode that as per RN lasted for only about 5-10 seconds. The patient did not hit his head at that time and there was no reported loss of urine or bowel incontinence. There was also no reported tonic-clonic seizure activity observed , no loss of bowel or bladder control, no evidence of tongue biting. Per the patient's father the patient had a history of some "spells" when he was placed in enclosed spaces since he is claustrophobic. The patient otherwise denies any headache, dizziness, double vision, blurred vision, cough, fevers, chills and has had episodes of agitation. The patient was discharged from the medical psychiatric unit for further monitoring on telemetry since the unit did not this services. Syncopal workup completed as an inpatient patient was then medically deemed medically stable and discharged back to inpatient psychiatric center. We have been consulted for ongoing medical management continue medical management. Review of Systems Other All other systems reviewed and negative except as mentioned in history of present illness Past Family Social History Allergies: Coded Allergies: No Known Allergies (Unverified , 04/04/16) Per father. Pt presently psychotic. Past Medical History Schizophrenia ? h/o seizure Past Surgical History denies Reported Medications Reported Meds & Active Scripts Active Active Ordered Medications Current Medications Medications (Trade) Dose Ordered Sig/Olivier Route Start Time Stop Time Status Last Admin (Ativan) 2 mg Q6H PRN PO 04/06/16 16:00 (Ativan Inj) 2 mg Q6H PRN IM 04/06/16 16:00 (Benadryl) 50 mg HS PRN PO 04/06/16 16:00 (Tylenol) 650 mg Q4H PRN PO 04/06/16 16:00 (Milk Of Magnesia Liq) 30 ml DAILY PRN PO 04/06/16 16:00 (Mag-Al Plus Susp Liq) 30 ml Q6H PRN PO 04/06/16 16:00 (Cogentin) 1 mg Q12H PRN PO 04/06/16 16:00 (Cogentin Inj) 1 mg Q12H PRN IM 04/06/16 16:00 (Haldol) 5 mg TID PO 04/06/16 18:00 04/07/16 13:00 (Haldol Inj) 5 mg TID PRN IM 04/06/16 18:00 (KlonoPIN) 0.5 mg Q12HR PO 04/07/16 12:00 04/07/16 12:00 Family History Patient reports no significant family medical history Social History Lives with his dad. Single. Denies alcohol use Denies tobacco use Denies illicit drug use Physical Exam Vital Signs Vital Signs Date Time Temp Pulse Resp B/P Pulse Ox O2 Delivery O2 Flow Rate FiO2 04/07/16 05:00 98.1 95 18 111/57 97 04/06/16 18:19 97.9 95 17 170/84 98 Physical Exam GENERAL: This is a well-nourished, well-developed patient, in no apparent distress. SKIN: No rashes, ecchymoses or lesions. Cool and dry. HEAD: Atraumatic. Normocephalic. No temporal or scalp tenderness. EYES: Extraocular motions intact. No scleral icterus. No injection or drainage. ENT: Nose without bleeding, purulent drainage or septal hematoma. Throat without erythema, tonsillar hypertrophy or exudate. Uvula midline. Airway patent. NECK: Trachea midline. No JVD or lymphadenopathy. Supple, nontender, no meningeal signs. CARDIOVASCULAR: Regular rate and rhythm without murmurs, gallops, or rubs. RESPIRATORY: Clear to auscultation. Breath sounds equal bilaterally. No wheezes , rales, or rhonchi. GASTROINTESTINAL: Abdomen soft, non-tender, nondistended. No guarding. MUSCULOSKELETAL: Extremities without clubbing, cyanosis, or edema. No joint tenderness, effusion, or edema noted. No calf tenderness. Negative Homans sign bilaterally. NEUROLOGICAL: Awake and alert. Motor and sensory grossly within normal limits. Five out of 5 muscle strength in all muscle groups. Normal speech. Laboratory Laboratory Tests Test 04/07/16 07:12 Total Creatine Kinase 432 Creatine Kinase MB LESS THAN 0.5 Creatine Kinase MB % 0.1 Assessment and Plan Assessment and Plan (1) Syncope Telemetry did not show any cardiac arrhythmias. CT of the head, EEG, orthostatics, and carotid ultrasound were negative. 2-D echo showed normal systolic function without regional wall abnormalities. Patient has been monitored, all workup for syncope negative. Question psychiatric/claustrophobic reaction (2) Schizophrenia Management as per psychiatry. (3) Claustrophobia Likely the patient has this "spells" due to claustrophobia. RN, patient, patient's father. Patient appears medically stable will sign off if patient's condition changes or further assistance is needed please reconsult Written by Niru Corey, acting as scribe for Dr. Chicas on 04/07/16 at 14:19. The documentation accurately reflects the work performed [id number] by me on at 14:19. Niru Corey Apr 07, 2016 14:20 Lobo Da Silva MD Apr 24, 2016 10:37
[2016-04-07 18:24] VITALS: BP 133/61; PULSE 114; RESP 16; TEMP 97.9; O2SAT 98
[2016-04-07 19:30] VITALS: BP 156/90; PULSE 101; RESP 18; TEMP 97.6; O2SAT 96
[2016-04-07 19:35] VITALS: BP 156/90; PULSE 101; RESP 16
[2016-04-07 20:18] VITALS: BP 123/53; PULSE 63; RESP 17; TEMP 97.8; O2SAT 99
[2016-04-08] VITALS (7 sets, daily range): BP systolic 103–170; BP diastolic 51–93; PULSE 87–126; RESP 18–20; TEMP 97.7–98.6; O2SAT 97–99
[2016-04-08] MEDS: HALOPERIDOL 5 MG TAB PO SCH ×2 (09:32→13:46)
[2016-04-08] MEDS: clonazePAM 0.5 MG TAB PO SCH (09:32)
--- NOTE | 2016-04-08 12:31 | HHI.PYPN ---
Subjective Remarks Patient seen and examined with counselor. Chart reviewed. Case discussed with nursing staff, who reports patient had a few of his fainting spells while in the confines of the inpatient psychiatric unit. On my examination today, patient complains of anxiety related claustrophobia. We discussed adjusting his Klonopin for improved anxiolysis. Patient is calm and somewhat childlike. He remains internally stimulated. Denies side effects from medications. Agreeable to Haldol Decanoate. Review of Systems Other Some fainting spells, likely related to anxiety. Falls precautions in place. No other physical complaints. Objective Alert: Yes [place]: Person, Place Mood: Calm Affect: Other (childlike) Memory Intact: Comment (fair) Hallucinations: Other (internally stimulated) Delusions: No Delusion Type: Other (no dong delusions) Suicidal: Ideation (no SI) Homicidal: Ideation (no HI) Insight/Judgement Poor Remarks No abnormal motor movements noted. Thought processes fairly linear. Speech within normal limits for rate, tone and volume. Labs Test 04/08/16 06:07 Total Creatine Kinase 253 U/L Labs reviewed. CK improved. Vitals/IOs Vital Signs Date Time Temp Pulse Resp B/P Pulse Ox O2 Delivery O2 Flow Rate FiO2 04/08/16 10:30 96 20 122/77 04/08/16 06:20 97.7 99 Assessment & Plan Problem List: (1) Schizophrenia ICD Code: F20.9 (2) Adjustment disorder with anxiety ICD Code: F43.22 Assessment & Plan Titrate Klonopin for anxiety. Patient seems to have derived significant benefit from Haldol with regards to his psychosis. Continue oral Haldol and administer Haldol Decanoate 100 mg IM today with plans to administer the balance of the dose after the weekend. Continue other medications and care as ordered. Justification for Cont. Inpt. Risk for decompensation Discharge Planning Plan for outpatient commitment once psychiatrically stabilized if accepted into the program to the unit tender. Request HC Surrog/Guard Advoc?: Yes Problem Qualifiers (1) Schizophrenia: Qualified Code: F20.0 - Paranoid schizophrenia Rl Bauman MD Apr 08, 2016 12:31
[2016-04-08] MEDS ORDERED: HALOPERIDOL DECANOATE 50 MG/ML VIAL IM SCH (13:00)
[2016-04-08] MEDS: clonazePAM 1 MG TAB PO SCH (20:34)
[2016-04-09 05:47] VITALS: BP 126/78; PULSE 103; RESP 18; TEMP 98.2; O2SAT 100
[2016-04-09] MEDS: HALOPERIDOL 5 MG TAB PO SCH ×3 (09:00→17:16)
[2016-04-09] MEDS: clonazePAM 1 MG TAB PO SCH ×2 (09:06→20:54)
--- NOTE | 2016-04-09 16:34 | HHI.PYPN ---
Subjective Remarks Patient was seen and case discussed with nursing. He has not had any fainting spells. Pleasant and cooperative with exam. He is flat and hyperverbal but not particularly anxious. Compliant with his medications. Nursing believes he may be responding to internal stimuli. Objective Alert: Yes [place]: Person, Place Mood: Calm Affect: Other (childlike) Memory Intact: Comment (fair) Hallucinations: Other (internally stimulated) Delusions: No Delusion Type: Other (no dong delusions) Suicidal: Ideation (no SI) Homicidal: Ideation (no HI) Insight/Judgement Poor Vitals/IOs Vital Signs Date Time Temp Pulse Resp B/P Pulse Ox O2 Delivery O2 Flow Rate FiO2 04/09/16 05:47 98.2 103 18 126/78 100 Assessment & Plan Problem List: (1) Schizophrenia ICD Code: F20.9 (2) Adjustment disorder with anxiety ICD Code: F43.22 Assessment & Plan Continue current treatment plan Justification for Cont. Inpt. Patient will decompensate in a less restrictive setting Request HC Surrog/Guard Advoc?: Yes Problem Qualifiers (1) Schizophrenia: Qualified Code: F20.0 - Paranoid schizophrenia Aydin Max DO Apr 09, 2016 16:34
[2016-04-09 18:21] VITALS: BP 146/78; PULSE 110; RESP 18; TEMP 99; O2SAT 97
[2016-04-10 06:40] VITALS: BP 130/69; PULSE 100; RESP 18; TEMP 97.8
[2016-04-10] MEDS: HALOPERIDOL 5 MG TAB PO SCH ×3 (08:44→17:46)
[2016-04-10] MEDS: clonazePAM 1 MG TAB PO SCH ×2 (08:44→22:01)
--- NOTE | 2016-04-10 16:03 | HHI.PYPN ---
Subjective Remarks Patient was seen and case discussed with nursing. Patient says he made a decision that she gives consent to a long-acting injection. Pleasant and cooperative with exam. Denies any positive symptoms remains delayed. Largely seclusive to room. Denies suicidal ideations thought or plan Objective Alert: Yes [place]: Person, Place Mood: Calm Affect: Other (childlike) Memory Intact: Comment (fair) Hallucinations: Other (internally stimulated) Delusions: No Delusion Type: Other (no dong delusions) Suicidal: Ideation (no SI) Homicidal: Ideation (no HI) Insight/Judgement Poor Vitals/IOs Vital Signs Date Time Temp Pulse Resp B/P Pulse Ox O2 Delivery O2 Flow Rate FiO2 04/10/16 06:40 97.8 100 18 130/69 04/09/16 18:21 97 Assessment & Plan Problem List: (1) Schizophrenia ICD Code: F20.9 (2) Adjustment disorder with anxiety ICD Code: F43.22 Assessment & Plan Continue current treatment plan Justification for Cont. Inpt. Patient will decompensate in a less restrictive setting Request HC Surrog/Guard Advoc?: Yes Problem Qualifiers (1) Schizophrenia: Qualified Code: F20.0 - Paranoid schizophrenia Aydin Max DO Apr 10, 2016 16:03
[2016-04-10 20:30] VITALS: BP 137/60; PULSE 84; RESP 18; TEMP 97.7; O2SAT 98
[2016-04-11 06:18] VITALS: BP 156/75; PULSE 84; RESP 18; TEMP 97.4; O2SAT 96
[2016-04-11] MEDS: HALOPERIDOL 5 MG TAB PO SCH ×3 (08:54→17:22)
[2016-04-11] MEDS: clonazePAM 1 MG TAB PO SCH ×2 (08:54→20:33)
--- NOTE | 2016-04-11 10:54 | HHI.PYPN ---
Subjective Remarks Patient seen and examined with counselor. Chart reviewed. Case discussed with nursing staff who reports patient has had no further episodes of fainting over the weekend. On my examination today, the patient denies AVH. No SI or HI. His thought process seems more linear and organized. He denies any side effects from medications. Remains agreeable to additional Haldol Decanoate and we discussed the dose conversion oral to IM. Review of Systems ROS Limitations: Poor Historian Other No somatic complaints today Objective Alert: Yes [place]: Person, Place Mood: Calm (remains calm) Affect: Blunted (somewhat childlike) Memory Intact: Comment (fair) Hallucinations: Other (denies AVH) Delusions: No Delusion Type: Other (no delusions) Suicidal: Ideation (no SI) Homicidal: Ideation (no HI) Insight/Judgement Poor, likely chronically so Remarks No hand tremor, no dystonia, no dyskinesia, no cogwheeling, no other motoric abnormalities. Labs Labs reviewed. No new labs. Vitals/IOs Vital Signs Date Time Temp Pulse Resp B/P Pulse Ox O2 Delivery O2 Flow Rate FiO2 04/11/16 06:18 97.4 84 18 156/75 96 Assessment & Plan Problem List: (1) Schizophrenia ICD Code: F20.9 (2) Adjustment disorder with anxiety ICD Code: F43.22 Assessment & Plan Patient is tolerating initial dose of Haldol Decanoate well without side effects and seems to be deriving significant therapeutic benefit from the Haldol. Continue oral Haldol supplementation. I will plan to administer the balance of the Haldol Decanoate dose to bring the patient to approximately 20 times the oral dose or 300 mg IM. Continue Klonopin as ordered. Anxiety appears to be significantly lessened. Continue other medications and care as ordered. Justification for Cont. Inpt. Risk for decompensation pending psychiatric stabilization. Medication changes and process. Discharge Planning Pending psychiatric stabilization. I have initiated a petition for involuntary outpatient commitment and have consult for a second opinion. Plan will be for outpatient commitment after discharge. Request HC Surrog/Guard Advoc?: Yes Problem Qualifiers (1) Schizophrenia: Qualified Code: F20.0 - Paranoid schizophrenia Rl Bauman MD Apr 11, 2016 10:54
--- NOTE | 2016-04-11 13:30 | PD.CONS ---
Provisional Diagnosis Admission Date Apr 06, 2016 at 15:20 [place] I. 1. Schizophrenia, paranoid type, acute exacerbation 2. Rule out comorbid anxiety disorder [place] II. Deferred [place] V. GAF is 25 presently History of Present Illness Service Psychiatry Consult Requested By Primary Care Physician Unknown HPI Mr. Edward is a 20-year-old male with a history of schizophrenia who was initially admitted on April 02 to the inpatient psychiatric unit under a [employer] act. On about the patient's third hospital day the patient experienced several syncopal spells and was evaluated by the hospitalist and transferred initially to the med psych unit and thereafter was discharged to the inpatient medical unit for workup of these spells. Workup including head CT on the EKG, carotid ultrasound and EEG were all negative, and the spells are believed to be related to anxiety. Patient was fairly behaviorally disturbed on the medical unit and following medical clearance has been return to the [facility] inpatient psychiatric unit under my care for further management of his underlying psychiatric illness. Patient seen and examined with counselor at nursing staff. Chart reviewed. Case discussed with nursing staff. On my examination today, the patient remains frankly internally stimulated. He denies any AVH however. Mood is quite anxious. He denies any SI or HI. He is less perseverative on discharge than he was prior to his medical hospitalization. Paranoia is present. Psychiatric ROS is otherwise negative. Patient's case was presented to the [employer] court today with patient's father in attendance. The patient was retained on an involuntary basis on the inpatient psychiatric unit and his father was appointed as his guardian advocate. Involuntary outpatient commitment following discharge from the inpatient psychiatric unit was also discussed. Past psychiatric, family, chemical dependency and social history are unchanged from my initial history and physical examination from his index psychiatric hospitalization a few days ago. 04/11/16 Above note dictated by Dr. Bauman noted reviewed and agreed with. At this time Dr. streeter is recommending that the patient be referred to the court ordered outpatient treatment program. I have reviewed chart and seen patient on unit patient showing little insight into his need for this program. Remains with little insight about his disease her willingness to be compliant with medication. Dr. Ronquillo he has signed first opinion of the outpatient referral petition. I agree with him. Thus I'll cosign second opinion petition supporting referral to outpatient involuntary treatment program Past Family Social History Coded Allergies: No Known Allergies (Unverified , 04/04/16) Per father. Pt presently psychotic. Discontinued Reported Medications Buspirone 10 Mg Tab10 Mg PO TID Ref 0 04/02/16 Olanzapine (Zyprexa)15 Mg Tab15 Mg PO HS #30 TAB Ref 0 04/02/16 Bupropion HCl ER 24 HR (Wellbutrin Xl 24 HR)150 Mg Qbo905 Mg PO DAILY Ref 0 04/02/16 Current Medications Medications (Trade) Dose Ordered Sig/Olivier Route Start Time Stop Time Status Last Admin (Ativan) 2 mg Q6H PRN PO 04/06/16 16:00 (Ativan Inj) 2 mg Q6H PRN IM 04/06/16 16:00 (Benadryl) 50 mg HS PRN PO 04/06/16 16:00 (Tylenol) 650 mg Q4H PRN PO 04/06/16 16:00 (Milk Of Magnesia Liq) 30 ml DAILY PRN PO 04/06/16 16:00 (Mag-Al Plus Susp Liq) 30 ml Q6H PRN PO 04/06/16 16:00 (Cogentin) 1 mg Q12H PRN PO 04/06/16 16:00 (Cogentin Inj) 1 mg Q12H PRN IM 04/06/16 16:00 (Haldol) 5 mg TID PO 04/06/16 18:00 04/11/16 13:10 (Haldol Inj) 5 mg TID PRN IM 04/06/16 18:00 (KlonoPIN) 1 mg Q12HR PO 04/08/16 21:00 04/11/16 08:54 (Haldol Decanoate Inj) 100 mg Q28D IM 04/08/16 13:00 04/08/16 13:00 Patient's Strengths (min. 2) In a monitored setting. Supportive father. Physical Exam Vital Signs Vital Signs Date Time Temp Pulse Resp B/P Pulse Ox O2 Delivery O2 Flow Rate FiO2 04/11/16 06:18 97.4 84 18 156/75 96 Mental Status Examination Alert oriented somewhat irritable male Appearance Somewhat disheveled Speech: Unremarkable Orientation: x3 Memory: Unremarkable Thought Process: Linear Thought Content: Paranoid Hallucination Type: None (denies at this time) Attention and Concentration: Other (fair) Suicidal Ideation: No (denies at this time) Previous Suicide Attempts: No Homicidal Ideation: No Previous Homicide Attempts: No Insight: Poor Judgement: Poor Affect: Other (decreased range intensity) Mood: Irritable, Other (somewhat restricted) Motor Activity: Normal gait Assessment & Plan Problem List: (1) Schizophrenia ICD Code: F20.9 (2) Adjustment disorder with anxiety ICD Code: F43.22 Assessment & Plan Estimated LOS: days Request HC Surrog/Guard Advoc?: Yes Problem Qualifiers (1) Schizophrenia: Qualified Code: F20.0 - Paranoid schizophrenia Jose Tyler MD Apr 11, 2016 13:30
[2016-04-11 20:00] VITALS: BP 155/78; PULSE 91; RESP 18; TEMP 98.9
[2016-04-12 05:31] VITALS: BP 153/84; PULSE 100; RESP 18; TEMP 97.9; O2SAT 97
[2016-04-12] MEDS: HALOPERIDOL 5 MG TAB PO SCH ×3 (09:31→18:16)
[2016-04-12] MEDS: clonazePAM 1 MG TAB PO SCH ×2 (09:31→20:45)
--- NOTE | 2016-04-12 10:25 | HHI.PYPN ---
Subjective Remarks Patient seen and examined with counselor and nursing staff. Chart reviewed. Case discussed in treatment team. On my examination today, the patient is calm and polite. He denies audiovisual hallucinations. He does remain a little internally preoccupied but this is significantly attenuated versus earlier this admission. No dong delusional material. Less discharge focus. Agreeable to treatment plan. Denies side effects from medications. Review of Systems ROS Limitations: Poor Historian Other No somatic complaints today Objective Alert: Yes [place]: Person, Place Mood: Calm Affect: Blunted Memory Intact: Comment (fair) Hallucinations: Other (again denies AVH) Delusions: No Delusion Type: Other (no dong delusional material) Suicidal: Ideation (no SI) Homicidal: Ideation (no HI) Insight/Judgement Perhaps improving somewhat Remarks No motoric abnormalities noted Labs Labs reviewed. No new labs. Vitals/IOs Vital Signs Date Time Temp Pulse Resp B/P Pulse Ox O2 Delivery O2 Flow Rate FiO2 04/12/16 05:31 97.9 100 18 153/84 97 Manual Cuff/Auscultation Assessment & Plan Problem List: (1) Schizophrenia ICD Code: F20.9 (2) Adjustment disorder with anxiety ICD Code: F43.22 Assessment & Plan Plan for additional Haldol Decanoate tomorrow morning, 200 mg IM to bring total dose to 300 mg, or 20 times the oral dose. Continue oral Haldol supplementation. Continue Klonopin, which seems to be helping significantly less in his anxiety. Continue other medications and care as ordered. Justification for Cont. Inpt. Risk for decompensation Discharge Planning Plan for outpatient commitment hearing on , possible discharge after that. Request HC Surrog/Guard Advoc?: Yes Problem Qualifiers (1) Schizophrenia: Qualified Code: F20.0 - Paranoid schizophrenia Rl Bauman MD Apr 12, 2016 10:25
[2016-04-12 21:00] VITALS: BP 150/79; PULSE 95; RESP 18; TEMP 98; O2SAT 95
[2016-04-13 05:48] VITALS: BP 168/77; PULSE 101; RESP 20; TEMP 97.4; O2SAT 97
[2016-04-13] MEDS ORDERED: cloNIDine HCL 0.1 MG TAB PO PRN (08:00)
[2016-04-13] MEDS ORDERED: HALOPERIDOL DECANOATE 50 MG/ML VIAL IM ONE (09:00)
[2016-04-13] MEDS: HALOPERIDOL 5 MG TAB PO SCH ×3 (09:40→18:10)
[2016-04-13] MEDS: clonazePAM 1 MG TAB PO SCH ×2 (09:40→21:55)
--- NOTE | 2016-04-13 10:12 | HHI.PYPN ---
Subjective Remarks Patient seen and examined with counselor. Chart reviewed. Case discussed with nursing staff who reports patient is somewhat seclusive in the mornings but more interactive and sociable in the evenings. On my examination today, the patient is calm and pleasant. He does complain of some stiffness and has some mild EPS on examination for which I will start Cogentin. He does remain a little internally preoccupied but denies any AVH. Some lingering paranoia as well as he believes that his hospital name band is in fact handcuff. No side effects from medications besides the EPS. Review of Systems ROS Limitations: Poor Historian Other Complains of some stiffness as noted above. No other physical complaints. Objective Alert: Yes [place]: Person, Place Mood: Calm (remains calm) Affect: Euthymic Memory Intact: Comment (remains fair) Hallucinations: Other (denies but appears somewhat internally stimulated) Delusions: No Delusion Type: Other (no dong delusional material) Suicidal: Ideation (no SI) Homicidal: Ideation (no HI) Insight/Judgement Poor Remarks No hand tremor. Some mild cogwheeling on examination. No dystonias or dyskinesias noted. Thought process fairly linear. Speech within normal limits for rate, tone and volume. Labs Labs reviewed. No new labs. Vitals/IOs Vital Signs Date Time Temp Pulse Resp B/P Pulse Ox O2 Delivery O2 Flow Rate FiO2 04/13/16 05:48 97.4 101 20 168/77 97 Assessment & Plan Problem List: (1) Schizophrenia ICD Code: F20.9 (2) Adjustment disorder with anxiety ICD Code: F43.22 Assessment & Plan Add Cogentin to existing regimen. Plan for booster dose of Haldol Decanoate today. Continue oral Haldol supplementation. Continue other medications and care as ordered. Justification for Cont. Inpt. Risk for decompensation Discharge Planning Outpatient commitment hearing tomorrow. Possible discharge after that. Request HC Surrog/Guard Advoc?: Yes Problem Qualifiers (1) Schizophrenia: Qualified Code: F20.0 - Paranoid schizophrenia Rl Bauman MD Apr 13, 2016 10:12
[2016-04-13] MEDS: BENZTROPINE MESYLATE 1 MG TAB PO SCH ×2 (11:41→21:55)
[2016-04-13 19:56] VITALS: BP 142/78; PULSE 97; RESP 18; TEMP 98.4; O2SAT 97
[2016-04-14 06:23] VITALS: BP 110/61; PULSE 104; RESP 18; TEMP 97.4; O2SAT 97
[2016-04-14] MEDS: clonazePAM 1 MG TAB PO SCH (08:41)
[2016-04-14] MEDS: HALOPERIDOL 5 MG TAB PO SCH ×2 (08:41→12:26)
[2016-04-14] MEDS: BENZTROPINE MESYLATE 1 MG TAB PO SCH (08:41)
[2016-04-14] MEDS ORDERED: HALO5TAB PO (12:11)
[2016-04-14] MEDS ORDERED: CLON1 PO (12:11)
[2016-04-14] MEDS ORDERED: HALO100P IM (12:11)
[2016-04-14] MEDS ORDERED: BENZ1TAB PO (12:11)
--- NOTE | 2016-04-14 12:11 | HHI.DS ---
Psychiatry Discharge Summary Inpatient Psychiatric care?: Yes Advance Directive: No Reason Not Provided: Due to Patient Condition Mental Health AdvanceDirective: No Health Care Proxy: No Admission Admission Date Apr 06, 2016 at 15:20 Admission Diagnosis: (1) Schizophrenia ICD Code: F20.9 Brief History Mr. Edward is a 20-year-old male with a history of schizophrenia who was initially admitted on April 02 to the inpatient psychiatric unit under a [employer] act. On about the patient's third hospital day the patient experienced several syncopal spells and was evaluated by the hospitalist and transferred initially to the med psych unit and thereafter was discharged to the inpatient medical unit for workup of these spells. Workup including head CT on the EKG, carotid ultrasound and EEG were all negative, and the spells are believed to be related to anxiety. Patient was fairly behaviorally disturbed on the medical unit and following medical clearance has been return to the [facility] inpatient psychiatric unit under my care for further management of his underlying psychiatric illness. Patient seen and examined with counselor at nursing staff. Chart reviewed. Case discussed with nursing staff. On my examination today, the patient remains frankly internally stimulated. He denies any AVH however. Mood is quite anxious. He denies any SI or HI. He is less perseverative on discharge than he was prior to his medical hospitalization. Paranoia is present. Psychiatric ROS is otherwise negative. Patient's case was presented to the [employer] act court today with patient's father in attendance. The patient was retained on an involuntary basis on the inpatient psychiatric unit and his father was appointed as his guardian advocate. Involuntary outpatient commitment following discharge from the inpatient psychiatric unit was also discussed. Past psychiatric, family, chemical dependency and social history are unchanged from my initial history and physical examination from his index psychiatric hospitalization a few days ago. Tobacco Use In Past 30 Days: Refused To Answer Alcohol Use: Never Hospital Course Patient was admitted from the general medical unit to a locked, inpatient psychiatric unit. A general medical consultation was obtained. Patient was seen and examined daily on the unit by psychiatry and also visited by counselor. Medications were adjusted. The patient was started on long-acting injectable Haldol Decanoate at a final dose of 300 mg IM. He was continued on oral Haldol supplementation. Klonopin was added for anxiety, and this intervention extinguished his fainting spells which were thought to have their basis in anxiety/panic. There was no evidence of any suicidality or homicidality on the inpatient unit. Patient remained in good behavioral control and was medication compliant. On the day of discharge: The patient was presented to the [place] court and was accepted into the involuntary outpatient commitment program. He is in good spirits and does not voice any suicidal or homicidal ideations. Psychosis is significantly attenuated at time of discharge. No evidence side effects from medications. No physical complaints voiced. I animal biologist the patient is at low imminent risk of harm to self or others after weighing the acute, chronic, and protective factors. Patient has maximized benefit from this inpatient psychiatric hospital stay. Father is willing to have him home. Patient to follow-up with outpatient commitment program and also with primary care. Results Blood Pressure 110 / 61 Vital Signs Date Time Temp Pulse Resp B/P Pulse Ox O2 Delivery O2 Flow Rate FiO2 04/14/16 06:23 97.4 104 18 110/61 97 Item Value Date Time Total Creatine Kinase 432 U/L H 04/07/16 0712 Total Creatine Kinase 253 U/L 04/08/16 0607 Summary of Procedures None done Imaging None done Pending results at discharge: No Medications # of Antipsychotic meds at D/C: 1 Approp Antipsych med options 1 - Minimum of three failed multiple trials of monotherapy. 2 - Documented plan to taper to monotherapy due to previous use of multiple meds OR cross-taper in progress at D/C. 3 - Documentation of augmentation of Clozapine. 4 - Justification other than those listed in allowable values 1-3, document here : Discharge Discharge Date: Apr 14, 2016 Discharge Diagnosis: (1) Schizophrenia Diagnosis: Principal (improved versus admission) ICD Code: F20.9 (2) Adjustment disorder with anxiety Diagnosis: Secondary (improved) ICD Code: F43.22 GAF on discharge is 55 Mental Status Exam at Disch Patient is casually dressed. He is fairly well groomed and maintaining basic hygiene. He is awake and alert and oriented to person and hospital at least. No hand tremor, no dystonia, no dyskinesia, no other motoric abnormalities noted. Speech is within normal limits for rate, tone and volume. Language and fund of knowledge seem perhaps mildly reduced for age. Mood is fair and affect is somewhat childlike but euthymic. Thought process linear. No loosening of associations. No dong delusional material. Perhaps some mild residual internal stimulation but this is significantly improved versus admission. No reported command auditory hallucinations. No suicidal or homicidal ideation. Insight and judgment is fair to poor at best with the patient has been placed in the involuntary outpatient program with the hope of improving his insight in the longer term. Pt Condition on Discharge: Stable Discharge Disposition: Discharge Home Discharge Instructions Diet Instructions: As Tolerated, No Restrictions Activities you can perform: Weight Bearing as Sang Scheduled Appointment: [facility] Appointment Date: Apr 14, 2016 Appointment Time: 2:30pm New Medications: Haloperidol Decanoate Inj (Haldol Decanoate Inj) 100 Mg/Ml Inj 300 MG IM Q28D Next dose of Haldol Decanoate due on 05/06/16. Schizophrenia #1 Ref 0 VIAL Benztropine (Benztropine) 1 Mg Tab 1 MG PO Q12HR Side effect management Days 15 Ref 1 TAB Clonazepam (Klonopin) 1 Mg Tab 1 MG PO Q12HR Mental Health Days 15 Ref 1 TAB Haloperidol (Haloperidol) 5 Mg Tab 5 MG PO TID Continue taking oral Haldol until your next Haldol Decanoate injection. Talk with your doctor about how to take this medication after that. Mental Health Days 15 Ref 1 TAB Discharge Time <= 30 minutes Discharge/Advance Care Plan Health Problems: (1) Schizophrenia (2) Adjustment disorder with anxiety Goals to promote your health * To prevent worsening of your condition and complications * To maintain your health at the optimal level Directions to meet your goals Take your medications as prescribed Follow your dietary instruction Follow activity as directed Keep your appointments as scheduled Take your immunizations and boosters as scheduled If your symptoms worsen call your PCP, if no PCP go to Urgent Care Center or Emergency Room For 17/10 questions related to your inpatient stay or results of tests pending at discharge, please contact Dr. Rl Bauman at Smoking is Dangerous to Your Health. Avoid second hand smoking Problem Qualifiers (1) Schizophrenia: Qualified Code: F20.0 - Paranoid schizophrenia Rl Bauman MD Apr 14, 2016 12:11
== END 2016-04-14 14:20 | disposition home or self-care (01) | DRG 885 ==
LOC: H270 15:20
PROVIDERS: ADMIT Psychiatry & Neurology Psychiatry; ATTEND Psychiatry & Neurology Psychiatry
DX: F20.0 Paranoid schizophrenia (principal); F43.22 Adjustment disorder with anxiety; F40.240 Claustrophobia; R55 Syncope and collapse
CPT/HCPCS: 82550; 82552; J1631